=== PATIENT | male | born 1950 | race American Indian/Alaskan Native ===

== ENCOUNTER 2018-01-04 15:34 | Emergency (ER) | payer OTHER ==
[2018-01-04 15:40] VITALS: BP 170/91
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
--- NOTE | 2018-01-04 20:19 | XRay Report ---
FINAL REPORT PROCEDURE: XR SPINE LUMBOSACRAL 2-3V TECHNIQUE: Lumbar spine radiographs, frontal and lateral views. CPT 44713 HISTORY: bilateral low back pain COMPARISON: No prior studies are available for comparison. FINDINGS: Alignment: There is mild degree levoscoliosis of the thoracolumbar spine. Vertebral body heights/Disk spaces: Normal . Fracture(s): None . Facets: Normal . Bone mineralization: Normal . IMPRESSION: Mild degree dextroscoliosis No acute abnormality
== END 2018-01-04 20:20 | disposition home or self-care (01) ==
LOC: ED 15:34
DX: S39.012A Strain of muscle, fascia and tendon of lower back, initial encounter (principal); I10 Essential (primary) hypertension; E11.9 Type 2 diabetes mellitus without complications; E78.00 Pure hypercholesterolemia, unspecified; Z87.891 Personal history of nicotine dependence; V89.2XXA Person injured in unspecified motor-vehicle accident, traffic, initial encounter; Y93.89 Activity, other specified; Y99.8 Other external cause status; Y92.410 Unspecified street and highway as the place of occurrence of the external cause
CPT/HCPCS: 72100; 99283